=== PATIENT | male | born 1960 | race Caucasian/White ===

== ENCOUNTER 2020-01-07 10:51 | Inpatient (IN) | payer MEDICAID ==
[~2020-01-07] VITALS: Ht 177.8 cm; Wt 80.9 kg
[2020-01-07 11:34] LABS: BASOPHILS # (AUTO) 0.1 X10'3 (0-0.2); BASOPHILS % (AUTO) 0.9 % (0-1); EOSINOPHILS % (AUTO) 0.6 % (0-6); HEMATOCRIT 30.5 % (42.0-52.0); HEMOGLOBIN 10.4 g/dl (14.0-17.9); LYMPHOCYTES % (AUTO) 17.4 % (21-51); MEAN CORPUSCULAR HEMOGLOBIN 28.4 PG (27.0-31.0); MEAN CORPUSCULAR HGB CONC 34.1 g/dL (33.0-36.5); MEAN CORPUSCULAR VOLUME 83.4 FL (78-98); MEAN PLATELET VOLUME 6.5 FL (7.4-10.4); MONOCYTES # (AUTO) 0.7 X10'3 (0-0.9); MONOCYTES % (AUTO) 12.3 % (2-12); NEUTROPHILS # (AUTO) 3.9 X10'3 (1.8-7.7); NEUTROPHILS % (AUTO) 68.8 % (42-75); PLATELET COUNT 440 X10'3 (140-440); RED BLOOD COUNT 3.66 X10'6 (4.70-6.10); RED CELL DISTRIBUTION WIDTH 18.9 % (11.5-14.5); WHITE BLOOD COUNT 5.7 X10'3 (4.5-11.0)
[2020-01-07 11:46] LABS: PARTIAL THROMBOPLASTIN TIME 26 SECONDS (22-32)
[2020-01-07 11:49] LABS: ALANINE AMINOTRANSFERASE 19 U/L (12-78); ALBUMIN 3.6 G/DL (3.4-5.0); ALBUMIN/GLOBULIN RATIO 0.9 (1.1-1.5); ALKALINE PHOSPHATASE 109 IU/L (46-116); ANION GAP 10 (8-16); ASPARTATE AMINO TRANSFERASE 21 U/L (10-37); BILIRUBIN,TOTAL 0.5 MG/DL (0.1-1.0); BLOOD UREA NITROGEN 9 MG/DL (7-18); BUN/CREATININE RATIO 8.7 (5.4-32.0); CHLORIDE 88 MMOL/L (99-107); CREATININE 1.03 MG/DL (0.60-1.10); GLUCOSE 130 MG/DL (70-104); POTASSIUM 4.5 MMOL/L (3.5-5.1); SODIUM 123 MMOL/L (135-145); TOTAL CARBON DIOXIDE 25.1 MMOL/L (24-32); TOTAL PROTEIN 7.8 G/DL (6.4-8.2); eGFR 73 ML/MIN
[2020-01-07 11:57] LABS: MAGNESIUM 1.4 MG/DL (1.5-2.4)
[2020-01-07] MEDS ORDERED: normal saline 1000ML IV soln IVB ONE (12:20)
[2020-01-07] MEDS ORDERED: HYDROcodone/acetaminophen 10/325mg tab PO PRN (13:05)
[2020-01-07] MEDS ORDERED: mag hydrox/Alum hydrox/simeth 30ml oral suspension PO PRN (13:05)
[2020-01-07] MEDS ORDERED: morphine 2 MG/ML inj. syringe IV PRN ×2 (13:05)
[2020-01-07] MEDS ORDERED: HYDROcodone/acetaminophen 5mg/325mg tablet PO PRN (13:05)
[2020-01-07] MEDS ORDERED: magnesium hydroxide 30ml (MOM) UD suspension PO PRN (13:05)
[2020-01-07] MEDS ORDERED: ondansetron/PF 4mg/2ml inj IV PRN (13:05)
[2020-01-07] MEDS ORDERED: acetaminophen 325mg tablet PO PRN ×2 (13:05)
[2020-01-07] MEDS ORDERED: ACET-1008 PO (13:07)
[2020-01-07] MEDS ORDERED: LISI10TA4 PO (13:07)
[2020-01-07] MEDS ORDERED: IBUP-1986 PO (13:07)
[2020-01-07] MEDS ORDERED: IBUP-24 PO (13:08)
[2020-01-07] MEDS: normal saline 1000ml 1,000 ML IV SCH ×2 (13:29→23:31)
[2020-01-07] MEDS ORDERED: nicotine 21mg patch - 24 hr TD ONE (14:45)
[2020-01-07 14:50] VITALS: BP 214/126
[2020-01-07 15:00] VITALS: BP 214/102
--- NOTE | 2020-01-07 15:12 | NUR ---
RECD PT FROM ER. BP 214/102 MANUALLY HR 72. WILL NOTIFY DR SAAB. PT ALERT AND ORIENTED.
--- NOTE | 2020-01-07 15:20 | NUR ---
PAGED DR SAAB RE: PAGER ID: [phone] MESSAGE: BATOOL JEFFERS. BP 214/102 HR 72. SURGICAL ALEX 5427
[2020-01-07 16:24] VITALS: BP 209/93
--- NOTE | 2020-01-07 16:26 | NUR ---
NOTIFIED DR SAAB RE BP .
[2020-01-07] MEDS ORDERED: cloNIDine 0.1 mg tablet PO ONE (16:30)
--- NOTE | 2020-01-07 17:32 | NUR ---
PAGED DR SAAB RE: PAGER ID: [phone] MESSAGE: BATOOL JEFFERS. BP 201/96 HR 69. CLONODINE GIVEN AT 1630. SURG ALEX 5496
[2020-01-07 18:00] VITALS: BP 178/74
--- NOTE | 2020-01-07 18:00 | NUR ---
Patient in room [facility]. I have received report from Gemma OGDEN and had the opportunity to ask questions and assume patient care. Addendum: 01/07/20 at 1916 by Vanessa Childress RN Amended: Links added.
--- NOTE | 2020-01-07 18:23 | NUR ---
Problems reprioritized. Patient report given, questions answered & plan of care reviewed with CESAR OGDEN.
[2020-01-07 20:00] VITALS: BP 178/74
--- NOTE | 2020-01-08 06:00 | NUR ---
Problems reprioritized. Patient report given, questions answered & plan of care reviewed with day shift nurse Gisel OGDEN. Addendum: 01/08/20 at 0807 by Vanessa Childress RN Amended: Links added.
[2020-01-08 06:13] LABS: BASOPHILS % (AUTO) 0.9 % (0-1); EOSINOPHILS # (AUTO) 0.1 X10'3 (0-0.9); EOSINOPHILS % (AUTO) 1.5 % (0-6); HEMATOCRIT 28.7 % (42.0-52.0); HEMOGLOBIN 9.5 g/dl (14.0-17.9); LYMPHOCYTES # (AUTO) 1.1 X10'3 (1.1-4.8); LYMPHOCYTES % (AUTO) 24.1 % (21-51); MEAN CORPUSCULAR HEMOGLOBIN 27.7 PG (27.0-31.0); MEAN CORPUSCULAR VOLUME 83.9 FL (78-98); MEAN PLATELET VOLUME 6.4 FL (7.4-10.4); MONOCYTES # (AUTO) 0.8 X10'3 (0-0.9); MONOCYTES % (AUTO) 18.2 % (2-12); NEUTROPHILS # (AUTO) 2.6 X10'3 (1.8-7.7); NEUTROPHILS % (AUTO) 55.3 % (42-75); PLATELET COUNT 371 X10'3 (140-440); RED BLOOD COUNT 3.42 X10'6 (4.70-6.10); RED CELL DISTRIBUTION WIDTH 18.5 % (11.5-14.5); WHITE BLOOD COUNT 4.7 X10'3 (4.5-11.0)
[2020-01-08 06:22] LABS: ALBUMIN 3.1 G/DL (3.4-5.0); ANION GAP 5 (8-16); BLOOD UREA NITROGEN 7 MG/DL (7-18); BUN/CREATININE RATIO 10.1 (5.4-32.0); CALCIUM 9.2 MG/DL (8.5-10.1); CHLORIDE 91 MMOL/L (99-107); CREATININE 0.69 MG/DL (0.60-1.10); GLUCOSE 97 MG/DL (70-104); POTASSIUM 4.4 MMOL/L (3.5-5.1); SODIUM 126 MMOL/L (135-145); TOTAL CARBON DIOXIDE 29.8 MMOL/L (24-32); eGFR > 90 ML/MIN
--- NOTE | 2020-01-08 07:22 | NUR ---
Paged EEG to remind them of pt.s order this AM. Paged vascular to clarify vascular carotid study ordered yesterday. UA order noted from yesterday around 1430. Previous RN did not notify this RN of VL carotid or of UA. Pt. unaware and no urinal in room. Requested that previous RN address this issue and she agreed to provide pt. with urinal, specimen cup and notification. Will continue to monitor for sample. Pt. also states pain in R hip from old injury, "pinched nerve". Requesting Tylenol and or IBU. Will notify MD of uncontrolled pain.
--- NOTE | 2020-01-08 07:44 | NUR ---
PAGER ID: [phone] MESSAGE: Luc Kiran 360B This pt. BP has been over 160 last shift. Now at 161/85. Did you want to order PRN BP med- or restart home lisinopril? MG low- PROTOCOL? NA 126- NACL tablets? Thank you, Tiffany [id number]
--- NOTE | 2020-01-08 07:46 | NUR ---
PAGER ID: [phone] MESSAGE: Could not fit in other page. Pt. also c/o uncontrolled R hip pain. Pt. want IBU and Tylenol for pain relief. Tiffany [id number]
[2020-01-08 07:48] LABS: MAGNESIUM 1.7 MG/DL (1.5-2.4)
[2020-01-08 08:00] VITALS: BP_SYST 149; BP_SYST 161; BP_SYST 208; BP_DIAS 83; BP_DIAS 85; BP_DIAS 94
[2020-01-08] MEDS: normal saline 1000ml 1,000 ML IV SCH (08:23)
[2020-01-08 10:03] LABS: CLARITY,URINE CLEAR (Clear); COLOR,URINE YELLOW (Yellow); GLUCOSE, URINE NEGATIVE (Neg); KETONES,URINE NEGATIVE (Neg); LEUKOCYTE ESTERASE ,URINE NEGATIVE (Neg); NITRITES, URINE NEGATIVE (Neg); OCCULT BLOOD,URINE SMALL (Neg); PROTEIN,URINE NEGATIVE (Neg); UROBILINOGEN,URINE 0.2 E.U/dL (0.2-1.0)
[2020-01-08 10:21] LABS: UA COLLECTION TYPE CLN CATCH MIDSTREAM
[2020-01-08 10:22] LABS: BACTERIA,URINE NONE SEEN /HPF (Neg); MUCUS STRANDS FEW /LPF (Neg); RBC,URINE 0-2 /HPF (0-2); SQUAMOUS EPITHELIAL CELL,UR NONE SEEN /LPF (FEW); WBC,URINE 0-4 /HPF (0-4)
--- NOTE | 2020-01-08 11:39 | NUR ---
MD stated to continue to monitor BP during rounds. No new antihypertensive medications ordered at this time. oked nicotine patch.
[2020-01-08] MEDS ORDERED: nicotine 21mg patch - 24 hr TD SCH (11:40)
[2020-01-08 11:52] VITALS: BP 156/79
--- NOTE | 2020-01-08 17:09 | NUR ---
Spoke with MD Villela. He aware procedures have resulted. States he will look over them and determine if pt. is ready to discharge or not.
--- NOTE | 2020-01-08 17:56 | NUR ---
Reviewed discharge paperwork with pt. He is aware to continue lisinopril per order. No new prescriptions. IV DC'd, pressure bandage applied, no s/sx bleeding noted. Pt.'s picked him up to go home. Pt. is aware to f/u at walk in clinic in [place]- his regular PCP, to continue to monitor his BP, to hydrate, stop smoking, stop drinking, and return to ER if any continued symptoms.
== END 2020-01-08 17:53 | disposition home or self-care (01) | DRG 469 ==
LOC: ER 10:52 → ED HOLD 13:03 → EDBEDREQ 14:21 → SUR 3N 14:53
PROVIDERS: ADMIT Internal Medicine; ATTEND Internal Medicine
PROC: 4A00X4Z Measurement of Central Nervous Electrical Activity, External Approach (ICD-10-PCS; principal; 2020-01-08)
DX: N17.9 Acute kidney failure, unspecified (principal); E86.0 Dehydration; D64.9 Anemia, unspecified; E87.1 Hypo-osmolality and hyponatremia; I10 Essential (primary) hypertension; Z79.899 Other long term (current) drug therapy; Z83.3 Family history of diabetes mellitus; Z87.891 Personal history of nicotine dependence
CPT/HCPCS: 36415; 70450; 70551; 71045; 80048; 80053; 81001; 82948; 83735; 83880; 84484; 85025; 85610; 85730; 87081; 93005; 93306; 93880; 95816; 99285; G0378; J7030

== ENCOUNTER 2022-09-25 17:56 | Emergency (ER) | payer MEDICAID ==
[~2022-09-25] VITALS: Ht 175.3 cm; Wt 84.1 kg
[~2022-09-25 17:56] MED LIST: ACET-1008 PO; IBUP-24 PO; LISI10TA27 PO
[2022-09-25 23:37] VITALS: BP 192/93
== END 2022-09-26 00:03 | disposition home or self-care (01) ==
LOC: ER 17:57
DX: R20.0 Anesthesia of skin (principal); I10 Essential (primary) hypertension; F17.200 Nicotine dependence, unspecified, uncomplicated; Z79.899 Other long term (current) drug therapy
CPT/HCPCS: 73564; 93922; 93926; 99284

== ENCOUNTER 2022-12-01 22:12 | Emergency (ER) | payer MEDICAID ==
[~2022-12-01] VITALS: Ht 177.8 cm; Wt 81.8 kg
[2022-12-02] MEDS ORDERED: morphine 2 MG/ML inj. syringe IV ONE (00:55)
[2022-12-02] MEDS ORDERED: ondansetron/PF 4mg/2ml inj IV ONE (00:55)
[2022-12-02] MEDS ORDERED: normal saline 1000ml 1,000 ML IV ONE (00:55)
[2022-12-02] MEDS ORDERED: iohexol 350 MG/ML 50ML vial IV ONE (01:02)
[2022-12-02] MEDS ORDERED: iohexol 350MG/ML 100ml bottle IV ONE (01:02)
[2022-12-02 01:18] LABS: HEMATOCRIT 27.2 % (42.0-52.0); HEMOGLOBIN 8.6 g/dl (14.0-17.9); MEAN CORPUSCULAR HEMOGLOBIN 21.3 PG (27.0-31.0); MEAN CORPUSCULAR HGB CONC 31.8 g/dL (33.0-36.5); MEAN CORPUSCULAR VOLUME 67.2 FL (78-98); MEAN PLATELET VOLUME 6.1 FL (7.4-10.4); PLATELET COUNT 370 X10'3 (140-440); RED BLOOD COUNT 4.05 X10'6 (4.70-6.10); RED CELL DISTRIBUTION WIDTH 21.3 % (11.5-14.5); WHITE BLOOD COUNT 4.3 X10'3 (4.5-11.0)
[2022-12-02 01:20] LABS: ALANINE AMINOTRANSFERASE 31 U/L (12-78); ALBUMIN 3.8 G/DL (3.4-5.0); ALBUMIN/GLOBULIN RATIO 1.1 (1.1-1.5); ALKALINE PHOSPHATASE 87 IU/L (46-116); ANION GAP 11 (8-16); ASPARTATE AMINO TRANSFERASE 30 U/L (10-37); BILIRUBIN,TOTAL 0.4 MG/DL (0.1-1.0); BLOOD UREA NITROGEN 8 MG/DL (7-18); BUN/CREATININE RATIO 11.6 (10.0-20.0); CALCIUM 9.1 MG/DL (8.5-10.1); CHLORIDE 88 MMOL/L (99-107); CREATININE 0.69 MG/DL (0.60-1.10); GLUCOSE 95 MG/DL (70-104); SODIUM 127 MMOL/L (135-145); TOTAL CARBON DIOXIDE 28.4 MMOL/L (24-32); TOTAL PROTEIN 7.4 G/DL (6.4-8.2); eGFR > 90 ML/MIN
[2022-12-02 02:00] LABS: TOTAL CELLS COUNTED 100
[2022-12-02 02:03] LABS: ANISOCYTOSIS 3+; HYPOCHROMASIA 2+; MICROCYTOSIS 2+; PLATELET ESTIMATE NORMAL; POIKILOCYTOSIS 1+
[2022-12-02 02:06] LABS: ELLIPTOCYTES 1+; SPHEROCYTES FEW
[2022-12-02] MEDS ORDERED: acetaminophen 325mg tablet PO ONE (02:30)
[2022-12-02] MEDS ORDERED: APIX5TAB3 PO (05:50)
[2022-12-02] MEDS ORDERED: lisinopril 10 MG tablet PO ONE (07:05)
--- NOTE | 2022-12-02 07:14 | NUR ---
Patient noted with severe hypertension. patient reports not taking his lisinopril, ordered verbal Dr. Troy and gave 10mg lisinopril oral.
[2022-12-02 08:34] VITALS: BP 211/94; PULSE 74; RESP 16; TEMP 98.1; O2SAT 94
== END 2022-12-02 08:35 | disposition home or self-care (01) ==
LOC: ER 22:13
DX: I82.412 Acute embolism and thrombosis of left femoral vein (principal); I10 Essential (primary) hypertension; G89.29 Other chronic pain; Z79.899 Other long term (current) drug therapy
CPT/HCPCS: 36415; 73706; 80053; 83880; 84484; 85007; 85025; 93005; 93971; 99285; J3490; Q9967